=== PATIENT | male | born 2000 | race Caucasian/White ===

== ENCOUNTER 2020-09-13 07:44 | Emergency (ER) | payer OTHER ==
[2020-09-13 08:20] LABS: BASOPHIL 1.2 % (0-2); EOSINOPHIL 2.4 % (0-5); HCT 44.1 % (42.0-52.0); HGB 14.8 g/dl (13.2-18.0); MCH 28.1 pg (25.0-31.0); MCHC 33.6 g/dL (32.0-36.0); MCV 83.8 fL (78.0-100.0); MONOCYTE 9.3 % (0-12); MPV 9.2 fL (6.0-9.5); NEUTROPHIL 50.6 % (41-80); NRBC 0; PLT 274 K/uL (150-400); RBC 5.26 M/uL (4.70-6.00); RDW 11.9 % (11.5-14.0); WBC 5.8 K/uL (4.0-10.5)
[2020-09-13 08:35] LABS: ALBUMIN 4.4 g/dL (3.4-5.0); BILIRUBIN - TOTAL 0.4 mg/dL (0.2-1.0); CREATININE 0.83 mg/dL (0.67-1.17); GLOBULIN (CALCULATION) 2.9 g/dL; POTASSIUM 3.5 mmol/L (3.5-5.1); TOTAL PROTEIN 7.3 g/dL (6.4-8.2)
[2020-09-13 08:47] LABS: BILIRUBIN NEGATIVE (NEGATIVE); BLOOD TRACE-INTACT Ery/uL (NEGATIVE); CLARITY CLEAR (CLEAR); COLOR YELLOW (YELLOW); GLUCOSE (U) 1+ mg/dL (NORMAL); LEUKOCYTES NEGATIVE Leu/uL (NEGATIVE); NITRITE NEGATIVE (NEGATIVE); PROTEIN NEGATIVE (NEGATIVE); SPECIFIC GRAVITY >=1.030 (1.001-1.030); UROBILINOGEN 0.2 mg/dL (0.2-1.0); pH 5.5 (5.0-9.0)
[2020-09-13 09:07] LABS: URINARY WBC RARE
[2020-09-13] MEDS ORDERED: BENTYL10 MG PO (09:40)
== END 2020-09-13 10:07 | disposition home or self-care (01) ==
LOC: FER 07:44
PROVIDERS: Emergency Medicine
DX: R10.9 Unspecified abdominal pain (principal); R11.2 Nausea with vomiting, unspecified; R81 Glycosuria; F17.210 Nicotine dependence, cigarettes, uncomplicated
CPT/HCPCS: 36415; 80053; 81001; 83690; 85025; 87339; 99284